=== PATIENT | female | born 1955 | race Caucasian/White ===

== ENCOUNTER 2025-02-17 12:50 | Outpatient (AMB) | payer MEDICARE, MEDICAID, SELFPAY ==
--- NOTE | 2025-02-17 13:04 | A.OFFVIS_ITS ---
Vital Signs 02/17/25 13:08 Height 5 ft 1 in Weight 190 lb 11.198 oz BMI 36.0 BP 144/84 H Blood Pressure Location Rt brachial Position Sitting Pulse 85 Pulse Source Pulse Oximeter Pulse Oximetry (%) 99 Oxygen Delivery Method Room Air Intake Visit Reasons: Obesity Intake Note: New patient referred by PCP for Obesity. Asset Manager Required: No Accompanied by: Self / Same As Patient Allergies alendronate sodium Allergy (Unknown, Verified 02/17/25 13:11) Trouble Breathing levofloxacin Allergy (Unknown, Verified 02/17/25 13:11) trouble breathing meloxicam Allergy (Unknown, Verified 02/17/25 13:11) Dizziness Penicillins Allergy (Unknown, Verified 02/17/25 13:11) Dizziness, hot flashes, trouble breathing Medication List - Last Reconciled 02/17/25 by Fredy Arciniega MD amlodipine 5 mg PO DAILY bupropion HCl XL 150 mg PO QAM furosemide 20 mg PO DAILY hydrocodone-acetaminophen 5-325 mg 1 tab PO BID PRN pantoprazole 20 mg PO DAILY HPI Comments Details: The patient is a 69-year-old female presenting with concerns regarding weight management and the potential for diabetes due to her recent weight gain and family history of diabetes. She reports a history of obesity, exacerbated by a 15-pound weight gain following spinal surgery conducted on May 26 at [facility]. This surgery involved the insertion of metal rods from T9 to her sacrum, leading to significant postoperative back pain and impaired mobility. She attempts daily walking for 20 minutes using a walker but finds this challenging. Her family history includes diabetes on both her father's and mother's sides, contributing to her concerns about developing diabetes herself, though she currently considers herself prediabetic without a formal diagnosis. She previously tried Weight Watchers and a trial of Zepbound, losing 24 pounds in two months. However, financial constraints hinder her continuation of Zepbound, as insurance does not cover it. Her current weight is approximately 190 pounds. No thyroid problems are reported, but she has arthritis and significant post-surgical back pain. The patient's diet includes a preference for sweets over other foods. She has not seen a raw stock dyeing machine tender before and has previously tried Weight Watchers for weight management. Despite efforts, weight issues have worsened with age. She has no food allergies or intolerances reported. There was no history thyroid problems. History of osteoarthritis and back pain s?p surgery .No sx of Nicola's Syndrome PFSH Medical History (Updated 02/17/25 @ 13:15 by Fredy Arciniega MD) Obesity Surgical History History of surgery Hx of spinal fusion Family History Mother History of hypertension Arthritis Lymphoma Father Arthritis Heart attack Diabetes Social History Alcohol intake: current Alcohol intake frequency: holidays/special occasions only Patient Tobacco Use Status: Former Tobacco user Physical Exam Vital Signs: Last Vital Signs Pulse 85 02/17/25 13:08 BP 144/84 H 02/17/25 13:08 Pulse Ox 99 02/17/25 13:08 Oxygen Delivery Method Room Air 02/17/25 13:08 BMI result Body Mass Index 36.0 Const Other: There were no cushingoid features. Thyroid gland is normal size weighs about 15 g . Assessment & Plan Assessment & Plan (1) Obesity: Code(s): E66.9 - Obesity, unspecified Category: Medical Plan: 69-year-old female with a history of morbid obesity and comorbidities of osteoarthritis as well as hypertension. No clear endocrine etiology. We will check TSH to rule out thyroid disease 1. Obesity The patient's obesity is exacerbated by limited mobility post-surgery. Discussed obesity's complexity and GLP-1 hormone role. She had success with Zepbound but stopped due to cost. Options for reduced-cost access via [employer] were explained. Will attempt insurance submission for Zepbound, likely facing rejection. Referred to raw stock dyeing machine tender. 2. Post-surgical back pain Significant pain persists post-surgery. Weight loss via Zepbound may help. Advised continued walking as tolerated. Explained weight loss could alleviate symptoms. 3. Prediabetes Family history and concerns noted. Discussed monitoring glucose levels. Explained GLP-1 therapy's potential metabolic benefits. Recommended dietary changes and raw stock dyeing machine tender consultation. 4. Arthritis Weight loss could improve arthritis. Emphasized weight reduction benefits on joint health and mobility. 5. Family history of diabetes Addressed concern about family history. Reassured about weight management steps and potential diabetes prevention through lifestyle changes and medication. During the consultation, we discussed the complexity of obesity and its management, including the role of GLP-1 hormones. I explained the patient's previous success with Zepbound and the current financial barriers to its continuation. We explored options to access the medication at a reduced cost through [employer]. I plan to submit a prescription for Zepbound through her insurance, although I anticipate rejection. I recommended consultation with a raw stock dyeing machine tender for dietary guidance. We discussed the patient's family history of diabetes and the importance of monitoring her blood glucose levels and making lifestyle modifications to prevent diabetes. The potential benefits of weight loss on her post-surgical back pain and arthritis were also reviewed. - Follow up with the referred raw stock dyeing machine tender to discuss dietary changes. - Attempt daily walking as tolerated for 20 minutes with the use of a walker. - Monitor blood glucose levels regularly. - Consider the option of accessing Zepbound through [employer] if insurance does not cover it. - Return for a follow-up appointment in three to four months. The patient had an opportunity to ask questions regarding treatment plan. The patient expressed understanding and agreement with the above treatment plan. Patient was informed and verbally consented to the use of an ambient scribe for clinic note documentation during this visit. Orders: Orders Free T4 (Free Thyroxine) Today E66.9 - Obesity, unspecified Thyroid Stimulating Hormone Today E66.9 - Obesity, unspecified Referrals Nutrition/Dietitian Referral E66.9 - Obesity, unspecified Medications: New tirzepatide (weight loss) (Zepbound) for 4 weeks 2.5 mg (0.5 mL) subcut QWEEK 2 mL 5RF Coding Level of Care Code New Pt Level 4 (25066) Diagnoses Obesity E66.9
[2025-02-17 13:08] VITALS: BP 144/84; PULSE 85; O2SAT 99; BMI 36.0
--- OUTSIDE RECORDS SUMMARY | 2025-02-17 13:30 | XMS_ITS | Clinical Summary ---
Author Organization [facility] [address] [facility] lding Address [address] [place] [address] Phone Care Team Providers Care Wool Sampler Name Role Phone Rebeca Allen MD Primary Care Prov ider Allergies Active Allergy Reactions Criticality Noted Date Comments Alendronate Sodium Other 05/22/2023 Unknown reaction type. Patient states that she was on Fosamax through [facility] in the past but there is no evidence of that in the chart. Levofloxacin Weakness 09/10/2017 Meloxicam 12/26/2021 Meloxicam-Liniment Penicillins Swelling 12/03/2005 Medications hydrOXYzine HCL (ATARAX) 25 mg tablet Take 1 tablet (25 mg total) by mouth 3 (three) times a day if needed for anxiety. 4 Active lidocaine (XYLOCAINE) 5 % ointment APPLY TO AFFECTED AREA THREE TIMES A DAY 4 Active pantoprazole (PROTONIX) 20 mg EC tablet TAKE 1 TABLET BY MOUTH EVERY DAY 90 tablet 1 4 Active tirzepatide, weight loss, (Zepbound) 2.5 mg/0.5 mL injection Inject 0.5 mL (2.5 mg total) under the skin every 7 (seven) days. 2 mL 5 Active buPROPion SR (WELLBUTRIN SR) 150 mg 12 hr tablet TAKE 1 TABLET BY MOUTH EVERY DAY IN THE MORNING 90 tablet 5 Active furosemide (LASIX) 20 mg tablet Take 1 tablet (20 mg total) by mouth 1 (one) time each day. 90 tablet 1 5 Active amLODIPine (NORVASC) 5 mg tablet Take 1 tablet (5 mg total) by mouth 1 (one) time each day. 90 tablet 1 5 Active HYDROcodone-tyson taminophen (NORCO) 10-325 mg per tablet Take 1 tablet by mouth 3 (three) times a day for 28 days. Max Daily Amount: 3 tablets 84 tablet 5 03/10/20 25 Active HYDROcodone-tyson taminophen (NORCO) 10-325 mg per tablet Take 1 tablet by mouth 3 (three) times a day for 28 days. Max Daily Amount: 3 tablets 84 tablet 5 02/11/20 25 Discontinu ed(Reorder ) Active Problems Problem Noted Date Diagnosed Date Chronic bilateral back pain 09/04/2024 Overview (09/04/2024): Posterior fusion from T9 to pelvic Fusion of spine of thoracic region 06/22/2024 Overview (08/03/2024): Posterior thoracic spine 3 or more levels osteotomy posterior lumbar spine Surgeon Dr. Ulisses Alvarez [facility] 2023 Osteopenia 05/07/2023 Severe obesity (BMI 35.0-39. 9) with comorbidity (CMS/[facility] V24, CMS/[facility] V28) 03/13/2023 COVID-19 virus infection 10/19/2021 Dysthymia 09/06/2020 Chondrocalcinosis of right knee 09/05/2020 Overview (08/03/2024): No history of pseudogout Primary osteoarthritis of both knees 02/06/2017 Overview (08/03/2024): R>L; chondrocalcinosis on the right Fibromyalgia 05/23/2015 Hypertension 06/21/2014 Peripheral vascular disease, unspecified (CMS/HC C V24) 06/21/2014 Osteoarthritis of lumbar spine 04/01/2006 Overview (08/03/2024): L3-4 disc surgery 1983 Encounters Date Type Department Care Team Description 01/15/2025 3:45 PM EDT Office Visit Adult Medicine - [address] [phone] Rebeca Ivory MD Encounter for long-term (current) use of high-risk medication (Primary Dx); Primary hypertension; Peripheral vascular disease, unspecified (CMS/[facility] V24); Chronic bilateral thoracic back pain; Severe obesity (BMI 35.0-39.9) with comorbidity (CMS/HCC V24, [facility] V28) 01/15/2025 10:00 AM EDT Telemedicine Adult Medicine - [place] [address] [place] [phone] Encounter for subsequent annual wellness visit (AWV) in Medicare patient (Primary Dx) 01/15/2025 Telephone Internal Medicine - [facility] [address] [place] [address] Jennifer Roger MA Medicare Annual Wellness Visit Subsequent (AWV DUE 2024) from Last 3 Months Immunizations Name Administration Dates Next Due Influenza Quadravalent, MDCK , 0.5ml, preservative free (Flucelvax) 6mo and older 06/06/2020,06/02/2019,07/08/2018 Influenza Quadravalent, MDCK , 0.5ml, with preservative (Flucelvax) 6mo and older 06/04/2017 Influenza trivalent, 0.5mL ( Fluad) 65yo and older 06/19/2023 Influenza trivalent, 0.5mL, preservative free (Fluarix; FluLaval; Fluzone) ages 6mo and older (Afluria) 3 years and older 07/03/2016,06/27/2015,08/10/2014,2007,08/11/2007 Influenza trivalent, with preservative (Fluzone; Afluria) 6mo and older 07/03/2016,06/27/2015,08/10/2014,2007,08/11/2007 Moderna Covid-19 Bivalent, O riginal + Ba.1 (Non-US Tradename Spikevax Bivalent) 07/10/2023,08/13/2022 Moderna SARS-CoV-2 COVID-19, mRNA, LNP-S, preservative free 08/21/2021,11/20/2020,10/23/2020 Td Tetanus diptheria (Tdvax) 7yo and older 04/01/2006 Tdap Tetanus diptheria acell ular pertussis (Boostrix; Adacel) 7yo and older 06/21/2014,04/01/2006 Medical History Medical History Date Comments Chronic airway obstruction, not elsewhere classified 04/01/2006 DX:Chronic airway obstructio n, not elsewhere classified; COMMENT: 30 PACK YEARS Lumbago 04/01/2006 DX:Lumbago Insomnia, unspecified 12/02/2006 DX:Insomni a, unspecified 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, of the knee, right 09/05/2020 DX:Chondrocalci nosis due to dicalcium phosphate crystals, of the knee, right; COMMENT: No history of pseudogout Osteopenia 05/07/2023 DX:Osteopenia Family History Medical History Relation Name Comments Coronary artery disease Brother 1 MVA Brother 2 Arthritis Father Diabetes Father Heart attack Father Arthritis Mother Hypertension Mother Lymphoma Mother No Known Problems Sister 1 No Known Problems Sister 2 No Known Problems Sister 3 No Known Problems Sister 4 No Known Problems Sister 5 No Known Problems Son Relation Name Status Comments Brother 1 Alive Brother 2 Father Mother Alive Sister 1 Alive Sister 2 Alive Sister 3 Alive Sister 4 Alive Sister 5 Alive Son Alive Social History Tobacco Use Types Packs/Day Years Used Date Smoking Tobacco: Former Cigarettes Q uit: 09/23/2008 Smokeless Tobacco: Never Tobacco Cessation:Counseling Given: Not Answered Alcohol Use Standard Drinks/Week Comments Yes 0 (1 standard drink = 0.6 oz pur e alcohol) rarely Housing Instability Answer Date Recorde d Are you worried that in the next 2 months you may not have stable housing? No 01/15/2025 Food Access & Nutrition Answer Date Rec orded Do you have access to a vari ety of food including fruits and vegetables? Yes 01/15/2025 Access to Healthcare Answer Date Record ed Within the last 3 months, ho w many times did you visit the emergency department for your medical care? 0 01/15/2025 Health Literacy Answer Date Recorded How often do you need to hav e someone help you when you read instructions, pamphlets, or other written material from your doctor or pharmacy? Never 01/15/2025 Caregiver: How often do you need to have someone help you when you read instructions, pamphlets, or other written material from your doctor or pharmacy? Not on file 01/15/2025 Financial Risk Answer Date Recorded How hard is it for you to pa y for the very basics like food, housing, medical care, and air conditioning / heating? Not very hard 01/15/2025 Transportation Answer Date Recorded Has the lack of transportati on kept you from meetings, work, or from getting things needed for daily living? No Has the lack of transportati on kept you from medical appointments or from getting medications? No 01/15/2025 Social Isolation Answer Date Recorded How often do you feel lonely or isolated from th ose around you? Never 01/15/2025 Food Risk Answer Date Recorded Within the past 12 months we worried whether our food would run out before we got money to buy more. Never true 01/15/2025 Within the past 12 months th e food we bought just didn't last and we didn't have money to get more. Never true 01/15/2025 Dependent Care Answer Date Recorded Do you need help finding or paying for care for your loved ones. For example, child protective services specialist or elderly care for an older adult? No 01/15/2025 Education Answer Date Recorded Do you think completing more education or training, like finishing a GED, going to college, or learning a trade, would be helpful for you? No 01/15/2025 Employment and Income Answer Date Recor ded During the last four weeks, have you been actively looking for work? No 01/15/2025 Living Situation Answer Date Recorded What is your living situation? 0 01/15/2025 Comments No Sex and Gender Information Value Date Recorded Sex Assigned at Not on file Legal Sex Female 12:32 PM EST Gender Identity Not on file Sexual Orientation Not on file Obstetrics History Last Filed Vital Signs Vital Sign Reading Time Taken Comments Blood Pressure 135/78 01/15/2025 3:40 PM EDT Pulse 111 01/15/2025 3:40 PM EDT Temperature 36.6 ??C (97.8 ??F) 01/15/2025 3:40 PM ED T Respiratory Rate - - Oxygen Saturation - - Inhaled Oxygen Concentration - - Weight 77.1 kg (170 lb) 09/04/2024 3:34 PM EST Height 149.9 cm (4' 11 ) 01/15/2025 3:40 PM EDT Body Mass Index 34.34 09/04/2024 3:34 PM EST Plan of Treatment Upcoming Encounters Date Type Department Care Team (Late st Contact Info) Description 04/20/2025 2:45 PM EDT Office Visit Adult Medicine [facility] [address] [place] [phone] Asha Montesinos PA [address] [place] [address] Health Maintenance Due Date Last Done Comments Pneumococcal Vaccine: 50+ Years (1 of 1 - PCV) 2006 Zoster Vaccines (1 of 2) 2006 RSV Immunization Adult Patients (1 - Risk 60-74 years 1-dose series) 2016 Colorectal Cancer Screening: Colonoscopy 08/21/2022 COVID-19 Vaccine ( season) 2024 07/10/2023, 08/13/2022, 08/21/2021, Additional history exists Breast Cancer Screening 03/20/2025 03/20/2023 Hypertension/CHF/CAD Annual BMP Blood Test 06/03/2025 06/03/2024 Depression Screening 01/15/2026 01/15/2025, 05/20/20 24 Falls Risk Assessment 01/15/2026 01/15/2025 Medicare Annual Wellness Visit 01/15/2026 01/15/2025 Social Influencers of Health Screening 01/15/2026 01/15/2025 Cholesterol Screening (Lipid Panel) 04/12/2028 04/12/2023, 03/13/2023 DTaP,Tdap,and Td Vaccines (5 - Td or Tdap) 02/01/2032 01/31/2022, 06/21/2014, 04/01/2006, Additional history exists Osteoporosis Screening (Bone Density Screening) 05/02/2033 05/02/2023 Hepatitis C Screening Completed 06/21/2014 Influenza Vaccine Completed 06/02/2024, , 06/20/2022, Additional history exists HIB Vaccines Aged Out No longer eligi ble based on patient's age to complete this topic HPV Vaccines Aged Out No longer eligi ble based on patient's age to complete this topic Hepatitis A Vaccines Aged Out No long er eligible based on patient's age to complete this topic Hepatitis B Vaccines Aged Out No long er eligible based on patient's age to complete this topic IPV Vaccines Aged Out No longer eligi ble based on patient's age to complete this topic MMR Vaccines Aged Out No longer eligi ble based on patient's age to complete this topic Meningococcal ACWY Vaccine Aged Out N o longer eligible based on patient's age to complete this topic Meningococcal B Vaccine Aged Out No l onger eligible based on patient's age to complete this topic RSV Immunization Patients Under 20 months Aged Out No longer eligible based on patient's age to complete this topic Varicella Vaccines Aged Out No longer eligible based on patient's age to complete this topic Procedures Procedure Name Priority Date/Time Associated Diagnosis Comments OPIATES CONFIRMATION, URINE Routine 01/15/2025 4:23 PM EDT Encounter for long-term (current) use of high-risk medication DRUG ABUSE SCREEN EXPANDED WITH REFLEX CONFIRMATION, URINE Routine 01/15/2025 4:23 PM EDT Encounter for long-term (current) use of high-risk medication ANNUAL BMP BLOOD TEST Routine 06/03/2024 DEPRESSION SCREENING Routine 05/20/2024 DXA BONE DENSITY STUDY 1+ SITS AXIAL SKEL Routine 05/02/2023 3:28 PM EDT Encounter for screening for osteoporosis LIPID PANEL Routine 04/12/2023 ODALIS SCREENING DIGITAL Routine 03/20/2023 11:09 AM EDT Encounter for screening mammogram for malignant neoplasm of breast HEPATITIS C SCREENING Routine 06/21/2014 from Last 3 Months or Most Recently Relevant to Health Maintenance Results * (ABNORMAL) Drug abuse screen expanded with reflex confirmation, urine (01/15/2025 4:23 PM EDT) Amphetamine Screen, Ur Negative Negative LAB CHEMISTRY METHOD 5 6:37 PM EDT [facility] Comment:Certain OTC medicati ons containing ephedrine, phenylephrine, pseudoephedrine and phenylpropanolamine can cause false positive results. Barbiturate Screen, Ur Negative Negative LAB CHEMISTRY METHOD 5 6:37 PM EDT [facility] Benzodiazepine Screen, Ur Negative Negative LAB CHEMISTRY METHOD 5 6:37 PM EDT [facility] Cocaine Screen, Ur Negative Negative [facility] Opiate Screen, Ur Positive(A ) Negative [facility] Cannabinoid (THC) Screen, Ur Negative Negative LAB CHEMISTRY METHOD 5 6:37 PM EDT [facility] Comment:Specimens from patie nts taking pantoprazole sodium (Protonix) have been shown to produce false positive results. Fentanyl, Ur Negative Negative [facility] Oxycodone Screen, Ur Negative Negative LAB CHEMISTRY METHOD 5 6:37 PM [facility] Urine Urine specimen obtained by clean catch procedure / Unknown Non-blood Collection / Unknown 01/15/2025 4:23 PM EDT 01/15/2025 4:23 PM EDT Narrative [facility] - 01/15/2025 6:37 PM EDT Assay cutoffs: Amphetamines ? 1000 ng/mL Barbiturates ?200 ng/mL Benzodiazepines ?? 200 ng/mL Cocaine ? 300 ng/mL Fentanyl ?1 ng/mL Opiates ? 300 ng/mL Oxycodone ? 100 ng/mL THC ?50 ng/mL Semi-quantitative assay for screening purposes only. Unconfirmed screening result should not be used for non-medical purposes. *POSITIVE RESULTS ARE AUTOMATICALLY SENT FOR ALTERNATE METHOD CONFIRMATION* us Rebeca Allen MD LAB URINE ORDERABL ES Final Result [facility] ([facility] [address] [place] [address], * Opiates confirmation, urine (01/15/2025 4:23 PM EDT) Morphine Confirm, Urine Negative ng/mL 01/19/2025 1:10 AM EDT [facility] Codeine Confirm, Urine Negative ng/mL 01/19/2025 1:10 AM EDT [facility] Hydrocodone Confirm, Urine 891 ng/mL 01/19/2025 1:10 AM EDT [facility] Hydromorphone Confirm, Urine 135 ng/mL 01/19/2025 1:10 AM EDT [facility] Oxycodone Confirm, Urine Negative ng/mL 01/19/2025 1:10 AM EDT [facility] Oxymorphone Confirm, Urine Negative ng/mL 01/19/2025 1:10 AM EDT [facility] Creatinine 56 20 - 250 mg/dL 01/19/2025 1:10 AM EDT [facility] Adulterants Negative 01/19/2025 1:10 AM EDT [facility] Comment: ? Confirmation (LC/MS/MS) Decision Limits ?Morphine ?25 ng/mL ?Codeine ? 25 ng/mL ?Hydrocodone ? 25 ng/mL ?Hydromorphone ? 25 ng/mL ?Oxycodone ? 25 ng/mL ?Oxymorphone ? 25 ng/mL ?Adulterant Decision Limit: ? General Oxidants ? 200 ug/mL ?The adulterant assay tests for General Oxidants, ??including Chromates and Nitrites. ??Adulterants are ??substances either ingested or added directly to a ??urine specimen to prevent the detection of drug use. If applicable, any drug confirmation testing reported here was developed and the performance characteristics determined by [facility]. This confirmation testing has not been cleared or approved by the FDA. The laboratory is regulated under CLIA as qualified to perform high-complexity testing. This test is used for patient testing purposes. It should not be regarded as investigational or for research. Test performed at [facility], [address], [place], [place] ??[address] ? [phone] Gale Veliz MD, PhD - [employer] Urine Urine specimen obtained by clean catch procedure / Unknown Non-blood Collection / Unknown 01/15/2025 4:23 PM EDT 01/15/2025 6:37 PM EDT us Rebeca Allen MD LAB URINE ORDERABL ES Final Result [facility] [address] [place] [address] * Annual [facility] Blood Test (06/03/2024) [facility] Annual BMP Blood Test Abstracted us Historical Provider HEALTH MAINTENANCE Final Result * Depression Screening (05/20/2024) [facility] Depression Screening Abstracted us Historical Provider HEALTH MAINTENANCE Final Result * DXA BONE DENSITY STUDY 1+ SITS AXIAL SKEL (05/02/2023 3:28 PM EDT) Anatomical Region Laterality Modality Bone Densitometr y 03/13/2023 10:2 5 AM EDT Narrative 05/06/2023 11:47 AM EDT STUDY: ??DUAL ENERGY X-RAY ABSORPTIOMETRY / DXA REASON FOR EXAM: ?? Female, 67 years old. ??other(see comments) TECHNIQUE: ?? Bone Mineral Density (BMD) measurements of the lumbar spine and left hip were obtained. ?? COMPARISON: None ?? FINDINGS: L1-L4 T score: 0.6. ??This corresponds to Normal bone density. Left femoral neck T score: -2.0. ??This corresponds to osteopenia. Left total hip T score: -1.6. ??This corresponds to osteopenia. FRAX score: 10 year risk of major osteoporotic fracture 9.7%, 10 year risk of hip fracture 1.4% IMPRESSION: IMPRESSION: Osteopenia Reference Information: The T-score is the number of standard deviations above or below the standard which is normal for young adults at their peak bone mineral density. The World Health Organization (WHO) interprets the T-scores as follows: Above ??-1 ?Normal bone density Between -1 and -2.5 ?Osteopenia Equal to / or below -2.5 ??Osteoporosis As a practical clinical guideline, osteopenia may be graded as follows: Mild -1 through -1.5 Moderate -1.6 ??through -2.0 Severe ??-2.1 ??through -2.4 References: 1. ??NIH Osteoporosis and Related Bone Diseases http://www.osteo.org 2. ??International Society for Clinical Densitometry http://www.iscd.org 3. ??National Osteoporosis Foundation http://www.nof.org Procedure Note Antonia Marques MD - 10/29/2023 STUDY: DUAL ENERGY X-RAY ABSORPTIOMETRY / DXA REASON FOR EXAM: Female, 67 years old. other(see comments) TECHNIQUE: Bone Mineral Density (BMD) measurements of the lumbar spineand left hip were obtained. COMPARISON: None FINDINGS: L1-L4 T score: 0.6. This corresponds to Normal bone density. Left femoral neck T score: -2.0. This corresponds to osteopenia. Left total hip T score: -1.6. This corresponds to osteopenia. FRAX score: 10 year risk of major osteoporotic fracture 9.7%, 10 year riskof hip fracture 1.4% IMPRESSION: IMPRESSION: Osteopenia Reference Information: The T-score is the number of standard deviations above or below thestandard which is normal for young adults at their peak bone mineral density. The World HealthOrganization (WHO) interprets the T-scores as follows: Above -1 Normal bone density Between -1 and -2.5 Osteopenia Equal to / or below -2.5 Osteoporosis As a practical clinical guideline, osteopenia may be graded as follows: Mild -1 through -1.5 Moderate -1.6 through -2.0 Severe -2.1 through -2.4 References: 1. NIH Osteoporosis and Related Bone Diseases http://www.osteo.org 2. International Society for Clinical Densitometry http://www.iscd.org 3. National Osteoporosis Foundation http://www.nof.org Anibal [facility]Kevin DXA PROCEDURES Final Resul t * Lipid panel (04/12/2023) Cholesterol 160 <=200 mg/dL Blood Venous blood specimen / Unknown us Historical Provider LAB BLOOD ORDERABLES Thu melendez Result * [facility] SCREENING DIGITAL (03/20/2023 11:09 AM EDT) Anatomical Region Laterality Modality Mammography 03/19/2023 2:51 PM EDT Narrative 03/20/2023 11:09 AM EDT [facility] Diagnostic Imaging Department [address] [place] [address] Patient: ??SAM AG ?/Age/Sex: 1955 - 67 - F Unit#: ??[id number] ? Location/Status: ??SPDIMAM/REG CLI ? Mnemonic/Ordering Site: ??DIGSC/SPMAM Ordering Physician: ??REBECA ALLEN MD Odalis Screening Digital - 03/19/23 - [id number] Report Status:Signed EXAM: [facility] Screening Digital EXAM DATE AND TIME: 03/19/2023 3:20 PM HISTORY: ??Screening. COMPARISON: ??07/14/12, 07/07/12, 12/04/10 TECHNIQUE: CC and MLO views of both breasts were obtained using full field digital mammography. Bilateral digital breast tomosynthesis was performed in the MLO projection. Computer aided detection with [employer] 7.2-H and iCAD [employer] 3D 3.1 was employed. TISSUE DENSITY: b. There are scattered areas of fibroglandular density. FINDINGS: No suspicious masses, grouped microcalcifications, or areas of architectural distortion are seen. Benign rim calcifications are again seen bilaterally. The skin and vascularity are unremarkable. IMPRESSION: No mammographic evidence of malignancy is seen. No significant change. A negative mammogram in the presence of a clinically suspicious palpable abnormality does not preclude the possibility of malignancy or alter the indications for biopsy. BI-RADS: ??Category 2: Benign RECOMMENDATION(S): 1: Routine screening mammogram BILATERAL in 1 year. [id number], [id number], 7025F Dictating Physician: ??MANDY ALLEN MD Electronically Signed by: ??MANDY ALLEN MD Dic Date/Time: ??03/20/23 110 Sign date/Time: ??03/20/23 110 Procedure Note Mandy Allen MD - 10/29/2023 [facility] Diagnostic Imaging Department [address] [place] [address] Patient: SAM AG D.O.B./Age/Sex: 1955 - 67 - F Unit#: [id number] Location/Status: SPDIMAM/REG CLI Mnemonic/Ordering Site: [facility] Ordering Physician: REBECA ALLEN MD Odalis Screening Digital - 03/19/23 - [id number] Report Status:Signed EXAM: [facility] Screening Digital EXAM DATE AND TIME: 03/19/2023 3:20 PM HISTORY: Screening. COMPARISON: 07/14/12, 07/07/12, 12/04/10 TECHNIQUE: CC and MLO views of both breasts were obtained using fullfield digital mammography. Bilateral digital breast tomosynthesis was performedin the MLO projection. Computer aided detection with iCAD [employer] 7.2-H [employer] 3D 3.1 was employed. TISSUE DENSITY: b. There are scattered areas of fibroglandular density. FINDINGS: No suspicious masses, grouped microcalcifications, or areas ofarchitectural distortion are seen. Benign rim calcifications are again seen bilaterally.The skin and vascularity are unremarkable. IMPRESSION: No mammographic evidence of malignancy is seen. No significant change. A negative mammogram in the presence of a clinically suspicious palpable abnormality does not preclude the possibility of malignancy or alter the indications for biopsy. BI-RADS: Category 2: Benign RECOMMENDATION(S): 1: Routine screening mammogram BILATERAL in 1 year. [id number], [id number] 3342F, 7025F Dictating Physician: MANDY ALLEN MD Electronically Signed by: MANDY ALLEN MD Dic Date/Time: 03/20/23 1108 Sign date/Time: 03/20/23 1109 Rebeca Allen MD IMG BI PROCEDURES Final Result * Hepatitis C Screening (06/21/2014) Hepatitis C Screening Abstracted Historical Provider HEALTH MAINTENANCE Final Result from Last 3 Months or Most Recently Relevant to Health Maintenance Insurance MEDICARE [place]ICAID - [place] Care Teams Wool Sampler Relationship Specialty Start Date End Date Rebeca Allen MD [address] [place] [phone] PCP - General Internal Medicine 09/04/24
== END 2025-02-17 13:52 | disposition home or self-care (01) ==
LOC: HO.ENCR 12:50
PROVIDERS: PCP Internal Medicine; Visit Provider Internal Medicine Endocrinology, Diabetes & Metabolism
DX: E66.9 Obesity, unspecified (principal)
CPT/HCPCS: 99204

== ENCOUNTER → 2025-02-17 12:50 | Outpatient (BNVA) | payer MEDICARE, MEDICAID, SELFPAY | PROVIDERS: PCP Internal Medicine; Visit Provider Internal Medicine Endocrinology, Diabetes & Metabolism | DX: E66.9 Obesity, unspecified (principal); Z68.36 Body mass index [BMI] 36.0-36.9, adult | CPT/HCPCS: 99202 ==

== ENCOUNTER 2025-09-14 12:30 | Outpatient (AMB) | payer MEDICARE, OTHER, SELFPAY ==
[2025-09-14 12:37] VITALS: BP 142/84; PULSE 71; O2SAT 98; BMI 38.4
--- NOTE | 2025-09-14 12:37 | A.OFFVIS_ITS ---
Vital Signs 09/14/25 12:37 Height 5 ft 1 in Weight 203 lb BMI 38.4 BP 142/84 H Blood Pressure Location Lt brachial Position Sitting Pulse 71 Pulse Source Pulse Oximeter Pulse Oximetry (%) 98 Oxygen Delivery Method Room Air Intake Visit Reasons: OA Intake Note: Patient is a new patient, externally referred by ROHINI Price for osteoarthritis. Orthopedic Physician Required: No Accompanied by: Self / Same As Patient Allergies alendronate sodium Allergy (Unknown, Verified 09/14/25 12:42) Trouble Breathing levofloxacin Allergy (Unknown, Verified 09/14/25 12:42) trouble breathing meloxicam Allergy (Unknown, Verified 09/14/25 12:42) Dizziness Penicillins Allergy (Unknown, Verified 09/14/25 12:42) Dizziness, hot flashes, trouble breathing HPI Comments Details: 70 year old female with a history of lymphedema in legs, back surgery in 2023 lumbar fusion, she is able to ambulate without a cane only uses when she goes outside. She has gained weight after surgery and is awaiting to use zepbound. She has joint pain in hands, shoulders, knees and hips. She has xrays done at [facility] for the knees which showed arthritis She also has xray done of the hips in May at [facility] She has one hour of morning stiffness,She takes tyenol and vicodin as needed. ROS: very photosensitive , no oral ulcers, no hair fall, no skin rashes, no bloody urine no bloody diarreha, she has dry eyes no dry miuth no miscarriages no blood clots She has Raynauds disease, no finger uclerations FH: sister and neice have lupus PHYSICAL EXAM General: Comfortable walks with a cane CVS: RRR Respiratory: clear to auscultation bilaterally. Good respiratory effort Skin: No lesions seen MSK: Patient is able to make a fist bilaterally. She has nontender MCPs PIPs, no active synovitis noted in the joints. She has limited range of motion of the shoulders there is pain with overhead abduction. She has limited range of motion of the hips, she has lymphedema in both lower extremities. Limited range of motion of the knees. [facility] Medical History (Updated 09/14/25 @ 13:38 by Екатерина Arellano MD) Abnormal EKG Palpitations Fusion of lumbar spine GERD (gastroesophageal reflux disease) Major depressive disorder Back pain Peripheral vascular disease Fibromyalgia Colon cancer screening Osteoarthritis Primary hypertension Obesity Surgical History History of surgery Hx of spinal fusion Family History (Updated 09/14/25 @ 12:44 by Cristiane Menjivar CMA) Mother History of hypertension Arthritis Lymphoma Father Arthritis Heart attack Diabetes Sister Lupus (systemic lupus erythematosus) Social History Alcohol intake: current Alcohol intake frequency: holidays/special occasions only Patient Tobacco Use Status: Former Tobacco user Physical Exam Vital Signs: Last Vital Signs Pulse 71 09/14/25 12:37 BP 142/84 H 09/14/25 12:37 Pulse Ox 98 09/14/25 12:37 Oxygen Delivery Method Room Air 09/14/25 12:37 BMI result Body Mass Index 38.4 Assessment & Plan Assessment & Plan (1) Osteoarthritis: Code(s): M19.90 - Unspecified osteoarthritis, unspecified site Category: Medical Qualifiers: Osteoarthritis location: multiple joints Osteoarthritis type: primary Qualified Code(s): M15.0 - Primary generalized (osteo)arthritis (2) Polyarthralgia: Code(s): M25.50 - Pain in unspecified joint Category: Medical (3) Raynauds disease: Code(s): I73.00 - Raynaud's syndrome without gangrene Category: Medical Qualifiers: Raynaud?s-associated gangrene presence: without gangrene Qualified Code(s): I73.00 - Raynaud's syndrome without gangrene Plan 70-year-old female with a history of osteoarthritis, chronic lower back pain status post surgery, fibromyalgia presenting to me for evaluation of joint pain. She is also concerned about the thought of lupus as her sister and niece have SLE. She endorses photosensitivity and Raynaud's phenomena along with some dry eyes. Based on her history and physical exam most likely cause of joint pain and osteoarthritis/wear and tear arthritis. Less likely for her to have SLE, RA or other connective tissue disease as she does not have the clinical features. She also may have a component of fibromyalgia. I do not see any signs of inflammatory arthritis on my exam however I will complete workup including SYED, SYED subsets, RF, CCP, ESR, CRP, I will also obtain x-rays of the hands and shoulders. I will also obtain records of her x-rays of her knees and hips. I will follow up with her in 4 weeks to discuss the results of her imaging and blood work, in the interim I suggested the patient that she should try to get a sleep apnea study to rule out sleep apnea which will improve her sleep and hopefully improve her joint pain. She is also looking to get Zepbound improved by insurance so that she can lose weight which will help her osteoarthritis. Orders: Orders C Reactive Protein Today R76.0 - Raised antibody titer UA ClnCatch+Micro w/rflx Cult Today R76.0 - Raised antibody titer Protein Creatinine Ratio, Ur Today R76.0 - Raised antibody titer SYED Reflex Titer and Pattern Today R76.0 - Raised antibody titer Cyclic Citrullinated Peptide Today R76.0 - Raised antibody titer Rheumatoid Factor Today R76.0 - Raised antibody titer Scleroderma 12 Panel Today R76.0 - Raised antibody titer Thyroid Stimulating Hormone Today R76.0 - Raised antibody titer Thyroglobulin Antibodies Today R76.0 - Raised antibody titer XR Hand Fransisco 2V Today I73.00 - Raynaud's syndrome without gangrene, M19.90 - Unspecified osteoarthritis, unspecified site, M25.50 - Pain in unspecified joint XR Shoulder Fransisco min 2V Today M19.90 - Unspecified osteoarthritis, unspecified site, M25.50 - Pain in unspecified joint Complete Blood Count Auto Diff Today R76.0 - Raised antibody titer Alanine Aminotransferase Today R76.0 - Raised antibody titer Aspartate Amino Transferase Today R76.0 - Raised antibody titer Creatinine Today R76.0 - Raised antibody titer Erythrocyte Sedimentation Rate Today R76.0 - Raised antibody titer Complement C3 Today R76.0 - Raised antibody titer Complement C4 Today R76.0 - Raised antibody titer DNA Double Stranded-Crithidia Today R76.0 - Raised antibody titer Anti DNA DS Antibody Today R76.0 - Raised antibody titer Sm Sm/ELECTRIC 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
--- OUTSIDE RECORDS SUMMARY | 2025-09-14 13:33 | XMS_ITS | Encounter Summary ---
Author Organization [facility] Address [address] [place] [address] Care Team Providers Care Signing Agent Name Role Phone Rebeca Allen MD Primary Care Prov ider Reason for Referral * Consultation (Routine) - Authorized Specialty Diagnoses / Procedures Referred By Contac t Referred To Contact Cardiology Diagnoses Abnormal electrocardiogram (ECG) (EKG) Rebeca Allen MD [address], [place] Phone: tel: fax: [facility] [address] [place] [address] Phone: tel: fax: Referral ID Status Reason Start Date Expiration Date Visits Requested Visits Authorized [id number] Authorized Specialty Services Required 08/23/2025 08/23/2026 5 5 Reason for Visit * Reason Onset Date Comments Referral 08/23/2025 Cardiology Insur ance Referral Encounter Details Date Type Department Care Team (Late st Contact Info) Description 08/23/2025 Telephone Adult Medicine - [place] [address] [place] [phone] Rebeca Allen MD [address], [place] Social History Tobacco Use Types Packs/Day Years Used Date Smoking Tobacco: Former Cigarettes 0.5 Q uit: 09/23/2008 Smokeless Tobacco: Never Alcohol Use Standard Drinks/Week Comments Yes 0 [...] for your loved ones. For example, child care coordinator or elderly care for an older adult? [...] Date Recorded What is your living situation? Unrecognized valu e 01/15/2025 Comments No Sex and Gender Information Value Date Recorded Sex Assigned at Female 04/27/2025 10:36 AM EDT Legal Sex Female 12:32 PM EST Gender Identity Female 04/27/2025 10:36 AM EDT Sexual Orientation Straight 04/27/2025 10 :36 AM EDT documented as of this encounter Progress Notes * Gisell Sands - 08/23/2025 8:48 AM EST -tyg[]'What insurance does the patient have today? Payor: @[email or web address]/@[email or web address] Referrals cannot be processed if the insurance is not accurate. If the insurance listed above is NO BILLING INFORMATION FOUND FOR THIS ENCOUNTER then the patients correct insurance must be obtainedand registered in [facility] or their referral can not be processed. Name of person calling to request this referral? Fax -Ellen Referred To Provider (Include first and last name): KILLIAN NPI (if known): [phone] Order/Specialty requested cardiology Chief Complaint (Note: This is not a body part or a procedure): R94.31 Has the patient seen provider for this problem/Dx before? Referred To Provider Address: [address] Referred To Provider Referred To Provider Does patient have an appointment scheduled?: yes If yes, what is the date of the appointment?: 08/25/25 Is this a retro request? no Number of visits requested: 6 Is this appointment related to: MVA or worker compensation? no documented in this encounter Plan of Treatment Upcoming Encounters Date Type Department Care Team (Late st Contact Info) Description 09/21/2025 3:00 PM EST Ancillary Procedure [facility] [address] [place] [address] 10/08/2025 2:30 PM EST Ancillary Procedure [facility] [address] [place] [address] 10/22/2025 11:45 AM EST Office Visit Adult Medicine - [place] [address] [place] [address] Asha Montesinos PA [address] [place] [address] Scheduled Referrals Name Type Priority Associated Diagnoses Orde r Schedule Ambulatory referral to Cardiology Outpatient Referral Routine Abnormal electrocardiogram (ECG) (EKG) Expected: 08/23/2025, Expires: 08/23/2026 documented as of this encounter Visit Diagnoses Diagnosis Abnormal electrocardiogram (ECG) (EKG)- Primary documented in this encounter Additional Health Concerns Assessment Noted Time PHQ-9 Depression Total Score: 0 04/19/20 5:38 PM EDT A fall risk assessment has been complete d for the patient 01/15/2025 10:13 AM EDT documented as of this encounter Care Teams Signing Agent Relationship Specialty Start Date End Date Rebeca Allen MD [address] [place] [address] PCP - General Internal Medicine 09/04/24 documented as of this encounter
--- OUTSIDE RECORDS SUMMARY | 2025-09-14 13:33 | XMS_ITS | Encounter Summary ---
Author Organization [facility] Address [facility] [employer] [address] [address] Phone Care Team Providers Care Nursing Center Tutor Name Role Phone Rebeca Allen MD Primary Care Pr ovider Encounter Details Date Type Department Care Team (Late st Contact Info) Description 05/26/2024 Procedure Pass [facility] [address] [place] [phone] Social History Tobacco Use Types Packs/Day Years Used Date Smoking Tobacco: Former Cigarettes 2 20 0 06/11/1980 - 10/25/1999 Smokeless Tobacco: Never Alcohol Use Standard Drinks/Week Comments Yes 1 (1 standard drink = 0.6 oz pur e alcohol) Education Answer Date Recorded Are you interested in more education? Not on tiara e 11/06/2023 Are you concerned about learning? Not on file 11/06/2023 No 11/06/2023 No 11/06/2023 Food Answer Date Recorded Within the past 6 months we worried whether our food would run out before we got money to buy more. Never True 05/26/2024 Within the past 6 months the food we bought just didn't last and we didn't have enough money to get more. Never True Residential Stability Answer Date Recor ded What is your housing situation today? I have any sing 05/26/2024 How many times have you move d in the past 12 months? Zero (I did not move) 05/26/2024 Paying for Meds Answer Date Recorded Do you have trouble paying for medicines? No 05/26/2024 Paying Utility Bills Answer Date Record ed Do you have trouble paying your heating or elect ricity bill? No 05/26/2024 Transportation Answer Date Recorded Has the lack of transportati on kept you from medical appointments or from getting medications? No 05/26/2024 Digital Access Answer Date Recorded No 05/26/2024 Yes 05/26/2024 Do you have reliable internet access at home? Ye s 05/26/2024 Do you have a device (e.g., phone, tablet, computer) with a working camera? Yes 05/26/2024 Intimate Partner Violence Answer Date R ecorded Are you denied basic needs s uch as food, clothing, or medical care? No 05/26/2024 In the past 12 months have y ou been in a relationship with a person who hurts, threatens, or tries to control you? No 05/26/2024 Are you denied basic needs s uch as food, clothing, or medical care? No 05/26/2024 In the past 12 months have y ou been in a relationship with a person who hurts, threatens, or tries to control you? No 05/26/2024 Comments No Sex and Gender Information Value Date Recorded Sex Assigned at Female 11/05/2023 3:07 PM EST Legal Sex Female 3:05 PM EST Gender Identity Female 11/05/2023 3:07 PM EST Sexual Orientation Straight 11/05/2023 3: 07 PM EST documented as of this encounter Plan of Treatment Upcoming Encounters Date Type Department Care Team (Late st Contact Info) Description 06/01/2026 1:45 PM EDT Office Visit [facility] [address] [place] [address], 3rd Floor, [address] [place] [address] Maria E Adamson CNP [address] [place] [address] [email or web address] documented as of this encounter Visit Diagnoses Not on filedocumented in this encounter Care Teams Nursing Center Tutor Relationship Specialty Start Date End Date Rebeca Allen MD [address] [place] [id number] PCP - General Internal Medicine 11/05/23 documented as of this encounter Additional Source Comments The information contained in this document represents components of the legal health record. It is not the complete legal health record.[facility]
--- OUTSIDE RECORDS SUMMARY | 2025-09-14 13:33 | XMS_ITS | Encounter Summary ---
Author Organization [facility] Address [address] [place] [address] Phone Care Team Providers Care Airplane Rental Clerk Name Role Phone Rebeca Allen MD Primary Care Pr ovider Encounter Details Date Type Department Care Team (Late st Contact Info) Description 06/02/2024 Procedure Pass [facility] [facility], 2nd Floor, [address] [place] [address] Social History Tobacco Use Types Packs/Day Years [...] Description 06/01/2026 1:45 PM EDT Office Visit [facility] [address] [place] [address], 3[address] Floor, [address] [place] [address] Maria E Adamson CNP [address] [place] [address] [email or web address] documented as of this encounter Visit Diagnoses Not on filedocumented in this encounter Care Teams Airplane Rental Clerk Relationship Specialty Start Date End Date Rebeca Allen MD [address] [place] [address] PCP - General Internal Medicine 11/05/23 documented as of this encounter Additional Source Comments The information contained in this document represents components of the legal health record. It is not the complete legal health record.[facility]
--- OUTSIDE RECORDS SUMMARY | 2025-09-14 13:33 | XMS_ITS ---
Author Name [facility] Organization Unknown Care Team Organization Name Specialty Phone Email Start Date End Da te [facility] ACO 05/12/2025 [facility] JOSE EDUARDO GEORGE Primary Care 09/04/20232023 [facility] DANIELLE SWENSON Primary Care 07/31/2022 05/11/2024
--- OUTSIDE RECORDS SUMMARY | 2025-09-14 13:33 | XMS_ITS | Encounter Summary ---
Author Organization [facility] Address [address] [place] [address] Care Team Providers Care Napper Fixer Name Role Phone Rebeca Allen MD Primary Care Prov ider Encounter Details Date Type Department Care Team ([facility] st Contact Info) Description 07/22/2025 Results Follow-Up Adult [facility] [address] [place] [address] Asha Montesinos PA [address] [place] [address] Social History Tobacco Use Types Packs/Day Years [...] care for your loved ones. For example, children's attendant or elderly care for an older adult? [...] AM EDT documented as of this encounter Plan of Treatment Upcoming Encounters Date Type Department Care Team (Late st Contact Info) Description 09/21/2025 3:00 PM EST Ancillary Procedure [facility] [address] [facility] [address] [place] [address] 10/08/2025 2:30 PM EST Ancillary Procedure [facility] [address] [place] [address] 10/22/2025 11:45 AM EST Office Visit Adult Medicine - [place] [address] [place] [address] Asha Montesinos PA [address] [place] [address] documented as of this encounter Visit Diagnoses Not on filedocumented in this encounter Additional Health Concerns Assessment Noted Time PHQ-9 Depression Total Score: 0 04/19/20 5:38 PM EDT A fall risk assessment has been complete d for the patient 01/15/2025 10:13 AM EDT documented as of this encounter Care Teams Napper Fixer Relationship Specialty Start Date End Date Rebeca Allen MD [address] [place] [address] PCP - General Internal Medicine 09/04/24 documented as of this encounter
--- OUTSIDE RECORDS SUMMARY | 2025-09-14 13:33 | XMS_ITS | Clinical Summary ---
Author Organization [facility] Address [facility] [employer] [address] [address] Phone Care Team Providers Care Circulation Analyst Name Role Phone Rebeca Allen MD Primary Care Pr ovider Allergies Active Allergy Reactions Criticality Noted Date Comments Alendronate Sodium Other (See Comments),Swelling 05/22/2023 Unknown reaction type. Patient states that she was on Fosamax through [facility] [facility] in the past but there is no evidence of that in the chart. Levofloxacin Rash with Joint Pain s (Serum Sickness) 09/10/2017 Other Reaction(s): Muscle weakness Meloxicam Swelling 04/30/2024 Penicillins Swelling 12/03/2005 Medications amLODIPine (NORVASC) 5 MG tablet Take 5 mg by mouth daily. Active buPROPion (WELLBUTRIN SR) 150 MG SR 12 hr tablet Take 150 mg by mouth every morning. Active calcium carbonate-vitam in D3 1500 mg (600 mg elemental)-400 units per tablet Take 1 tablet by mouth 2 (two) times a day. 04/20/2024 Active furosemide (LASIX) 20 MG tablet Take 20 mg by mouth daily. Active pantoprazole (PROTONIX) 20 MG tablet Take 1 tablet by mouth daily. 03/24/2024 Active acetaminophen (TYLENOL) 325 mg tablet Take 3 tablets (975 mg total) by mouth 3 (three) times a day. 06/01/2024 Active tiZANidine (ZANAFLEX) 4 MG tablet TAKE 1 TABLET (4 MG TOTAL) BY MOUTH EVERY 8 HOURS NEEDED FOR MUSCLE SPASM 42 tablet 2 06/08/2025 Active Active Problems Patient Care Coordination No te Formatting of this note is d ifferent from the original. 01/01/2024 2:09 PM RAPT REVIEW FLOWSHEET What is your age group 66-75 years Gender Female How far on average can you walk Housebound (most of time) Which gait aid do you use Single-point stick Do yo use community support None or one per week PROMs Risk Assessment and Prediction Tool (RAPT) Score 7 (Additional Intervention to Discharge Directly Home (e.g. 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 Encounters Date Type Department Care Team Description 07/15/2025 Orders Only [facility] [address] [facility], [address], [address] [place] [address] Dike, [place], [place] Knee instability (Primary Dx) from Last 3 Months Immunizations Immunization Administration Dates Next Due Influenza High-Dose Trivalent Preservative Free IM 06/02/2024 Social History Tobacco Use Types Packs/Day Years [...] Orientation Straight 11/05/2023 3: 07 PM EST Last Filed Vital Signs Vital Sign Reading Time Taken Comments Blood Pressure 160/67 06/03/2024 7:26 AM EDT Pulse 95 06/03/2024 5:03 AM EDT Temperature 37.2 C (99 F) 06/03/2024 7:26 AM EDT Respiratory Rate 18 06/03/2024 7:26 AM EDT Oxygen Saturation 93% 06/03/2024 7:26 AM EDT Inhaled Oxygen Concentration - - Weight 80.7 kg (178 lb) 05/26/2024 6:25 AM EDT Height 149.9 cm (4' 11 ) 05/26/2024 6:25 AM EDT Body Mass Index 35.95 05/26/2024 6:25 AM EDT Plan of Treatment Upcoming Encounters Date Type Department Care Team (Late st Contact Info) Description 06/01/2026 1:45 PM EDT Office Visit [facility] [address], [address], [address] [place] [address] Maria E Adamson, [employer] [address] [place] [address] [email or web address] Maintenance Due Date Last Done Comments DEPRESSION SCREENING 1968 HEPATITIS C SCREENING 1974 COLOGUARD 2001 COLONOSCOPY 2001 COLORECTAL CANCER SCREENING 2001 FIT TEST 2001 FOBT 2001 SIGMOIDOSCOPY 2001 VIRTUAL COLONOSCOPY 2001 PNEUMOCOCCAL VACCINES (50+ years) (1 of 1 - PCV) 2006 ZOSTER VACCINES (1 of 2) 2006 OSTEOPOROSIS SCREENING INITI AL (ONE-TIME) 2021 Adult Td,Tdap Booster 06/21/2024 06/21/2014 INFLUENZA VACCINE (#1) 2025 06/02/2024 COVID-19 VACCINE (1 - 2024-2 6 season) 2025 MAMMOGRAM 05/03/2027 05/03/2025, 05/03/2025 SCREENING FOR DIABETES 06/03/2027 06/03/2024 LIPID PANEL 04/12/2028 04/12/2023 RSV VACCINE (1 - 1-dose 75+ series) 2031 SMOKING STATUS SCREENING (On ce After 26 Yrs) Completed 06/03/2025 HEPATITIS A VACCINES Aged Out No long er eligible based on patient's age to complete this topic HIB VACCINES Aged Out No longer eligi ble based on patient's age to complete this topic MENINGOCOCCAL VACCINES (ACWY) Aged Out No longer eligible based on patient's age to complete this topic MENINGOCOCCAL VACCINES (B) Aged Out N o longer eligible based on patient's age to complete this topic Medical Devices Implanted Type Area Inspector Fabric Device Identifier Shelf Expiration Date Model / Serial / Lot Kit Graft 2.5x5.0cm Lg Bone Infuse Allograft Protein Collagen Absorbable Water Syringe Sponge - [id number] Implanted:Qty: 1 on 05/26/2024 by Darien Alvarez MD at [facility] BON[employer]UE N/A: Spine Lumbar [employer] 06/23/2025 [id number] / / [id number] Set Screw 5.5x55mm Spine Cd Horizon Multiaxial [place] Osteogrip Dual Lead Thread - [id number] Implanted:Qty: 22 on 05/26/2024 by Darien Alvarez MD at [facility] N/A: Spine Lumbar [employer] [id number] / / Side Loading Connector Implanted:Qty: 1 on 05/26/2024 by Darien Alvarez MD at [facility] N/A: Spine Lumbar [employer] Victor M 5.5b084an Spinal Cd Horizon Solera Titanium Curve - [id number] Implanted:Qty: 1 on 05/26/2024 by Darien Alvarez MD at [facility] N/A: Spine Lumbar [employer] [id number] / / Graft Bone 60cc 1-4mm Chip Cancellous - [id number] Implanted:Qty: 1 on 05/26/2024 by Darien Alvarez MD at [facility] N/A: Spine Lumbar [employer] 03/12/2029 [id number] / [id number] / Fastener Extension 6.5 X 45mm Cannulated - [id number] Implanted:Qty: 4 on 05/26/2024 by Darien Alvarez MD at [facility] N/A: Spine Lumbar [employer] [id number] / / Set Screw - [id number] Implanted:Qty: 4 on 05/26/2024 by Darien Alvarez MD at [facility] N/A: Spine Lumbar [employer] [id number] / / Spine Victor M 6 To [id number] Reline O Titanium Tapered - [id number] Implanted:Qty: 1 on 05/26/2024 by Darien Alvarez MD at [facility] N/A: Spine Lumbar [employer] [id number] / / Spine Victor M 500mm 6.0 5.0 Reline [place] - [id number] Implanted:Qty: 1 on 05/26/2024 by Darien Alvarez MD at [facility] N/A: Spine Lumbar [employer] [id number] / / Screw Bone 5.5x6x6.5x50mm Spine Fixation Solara Polyaxial Cannulated - [id number] Implanted:Qty: 12 on 05/26/2024 by Darien Alvarez MD at [facility] N/A: Spine Lumbar [employer] [id number] / / Screw Spine 6.5x45mm Longitude Cannulated - [id number] Implanted:Qty: 4 on 05/26/2024 by Darien Alvarez MD at [facility] N/A: Spine Lumbar [employer] [id number] / / Screw Spine 7.5x50mm [employer] Cannulated - [id number] Implanted:Qty: 1 on 05/26/2024 by Darien Alvarez MD at [facility] N/A: Spine Lumbar [employer] [id number] / / Screw Bone 8.5x50mm Spine Cd Horizon 5.5 Multiaxial [place] Chrome Osteogrip Dual Lead Thread - [id number] Implanted:Qty: 2 on 05/26/2024 by Darien Alvarez MD at [facility] N/A: Spine Lumbar [employer] [id number] / / Insurance MEDICARE PART A & B [employer] [employer] PREFERRED HMO REPLACEMENT MEDICARE PART A & B [employer] PREF[employer] REPLACEMENT MEDICARE PART A & B [facility] MEDICARE PREFERRED HMO REPLACEMENT MEDICARE PART A & B [employer] PREFERRED HMO REPLACEMENT MEDICARE PART A & B [facility] MEDICARE PREFERRED HMO REPLACEMENT MEDICARE PART A & B [facility] MEDICARE PREFERRED HMO REPLACEMENT Advance Directives For more information, please contact: [phone] (9AM - 5PM [place], Saturday-Saturday) Documents on File Type Date Recorded Patient Information Security Director Expl anation Healthcare Proxy 06/02/2024 10:13 AM * Full Code (Latest Code Status on File) Date Activated Date Inactivated Comments 05/26/2024 4:25 PM Question Answer Comments Code Status Confirmed With: Patient Code Status Communicated To: Inpatient Attending Care Teams Circulation Analyst Relationship Specialty Start Date End Date Rebeca Allen MD [address] [place] [id number] PCP - General Internal Medicine 11/05/23 Additional Source Comments The information contained in this document represents components of the legal health record. It is not the complete legal health record.[facility]
--- OUTSIDE RECORDS SUMMARY | 2025-09-14 13:34 | XMS_ITS | Clinical Summary ---
Author Organization [facility] [address] [facility] l[address] Address [address] [place] [address] Phone Care Team Providers Care Cma Name Role Phone Rebeca Allen MD Primary Care Prov ider Allergies Active Allergy Reactions Criticality Noted Date Comments Alendronate Sodium Other 05/22/2023 Unknown reaction type. Patient states that she was on Fosamax through [facility] in the past but there is no evidence of that in the chart. Levofloxacin Weakness 09/10/2017 Meloxicam 12/26/2021 Meloxicam-Liniment Penicillins Swelling 12/03/2005 Medications hydrOXYzine HCL (ATARAX) 25 mg tablet Take 1 tablet (25 mg total) by mouth 3 (three) times a day if needed for anxiety. 02/10/20 24 Active lidocaine (XYLOCAINE) 5 % ointment Apply topically 2 (two) times a day. 35.44 g 2 07/22/20 25 Active amLODIPine (NORVASC) 5 mg tablet Take 1 tablet (5 mg total) by mouth 1 (one) time each day. 90 tablet 1 07/22/20 25 Active buPROPion SR (WELLBUTRIN SR) 150 mg 12 hr tablet Take 1 tablet (150 mg total) by mouth 1 (one) time each day in the morning. 90 tablet 1 07/22/20 25 Active furosemide (LASIX) 20 mg tablet Take 1 tablet (20 mg total) by mouth 1 (one) time each day. 90 tablet 1 07/22/20 25 Active pantoprazole (PROTONIX) 20 mg EC tablet Take 1 tablet (20 mg total) by mouth 1 (one) time each day. 90 tablet 1 07/22/20 25 Active HYDROcodone-acetam inophen (NORCO) 5-325 mg per tabletIndications: Osteoarthritis of lumbar spine, unspecified spinal osteoarthritis complication status Take 1 tablet by mouth 3 (three) times a day if needed for severe pain or moderate pain. Max Daily Amount: 3 tablets 84 tablet 08/25/20 25 Active HYDROcodone-acetam inophen (NORCO) 5-325 mg per tabletIndications: Osteoarthritis of lumbar spine, unspecified spinal osteoarthritis complication status Take 1 tablet by mouth 3 (three) times a day if needed for severe pain or moderate pain. Max Daily Amount: 3 tablets 84 tablet 07/22/20 25 025 Discontin ued(Reord er) Active Problems Problem Noted Date Diagnosed Date Mild episode of recurrent major depressive disor asmmie 04/20/2025 Gastroesophageal reflux disease without esophagi tis 04/20/2025 Chronic bilateral back pain 09/04/2024 Overview (09/04/2024): Posterior fusion from T9 to pelvic Fusion of spine of thoracic region 06/22/2024 Overview (08/03/2024): Posterior thoracic spine 3 or more levels osteotomy posterior lumbar spine Surgeon Dr. Ulisses Alvarez [facility] 2023 Osteopenia 05/07/2023 Severe obesity (BMI 35.0-39.9) with comorbidity 03/13/2023 COVID-19 virus infection 10/19/2021 Dysthymia 09/06/2020 Chondrocalcinosis of right knee 09/05/2020 Overview (08/03/2024): No history of pseudogout Primary osteoarthritis of both knees 02/06/2017 Overview (08/03/2024): R>L; chondrocalcinosis on the right Fibromyalgia 05/23/2015 Hypertension 06/21/2014 Peripheral vascular disease, unspecified 014 Osteoarthritis of lumbar spine 04/01/2006 Overview (08/03/2024): L3-4 disc surgery 1983 Encounters Date Type Department Care Team Description 08/23/2025 Telephone Adult [address] [phone] Rebeca Alan MD 08/05/[address] [phone] Rebeca Alan MD 07/30/[address] [phone] Asha Montesinos PA 07/22/2025 3:55 PM EDT Lab Draw Station [address] [phone] Palpitations 07/22/2025 2:30 PM EDT Office Visit [address] [phone] Asha Montesinos PA Primary hypertension (Primary Dx); Osteoarthritis of lumbar spine, unspecified spinal osteoarthritis complication status; Screening for malignant neoplasm of colon; Fibromyalgia; Peripheral vascular disease, unspecified (CMS/HCC V24); Chronic bilateral back pain, unspecified back location; Mild episode of recurrent major depressive disorder (CMS/HCC V24); Gastroesophageal reflux disease without esophagitis; Fusion of spine of thoracic region; Hypertension, unspecified type; Primary osteoarthritis of both knees; Severe obesity (BMI 35.0-39.9) with comorbidity (CMS/HCC V24, CMS/HCC V28); Palpitations; Abnormal EKG 07/22/2025 Results Follow-Up [address] [phone] Asha Montesinos PA from Last 3 Months Immunizations Immunization Administration Dates Next Due Influenza Quadravalent, MDCK [...] 0.5 Q uit: 09/23/2008 Smokeless Tobacco: Never Tobacco [...] care for your loved ones. For example, registered nurse maternal child or elderly care for an older adult? [...] Orientation Straight 04/27/2025 10 :36 AM EDT Obstetrics History Para Term AB IAB SAB Ectopic Multiple Livin g Live Births 1 Last Filed Vital Signs Vital Sign Reading Time Taken Comments Blood Pressure 124/76 07/22/2025 2:30 PM EDT Pulse 98 07/22/2025 2:30 PM EDT Temperature 36.5 C (97.7 F) 07/22/2025 2:30 PM EDT Respiratory Rate - - Oxygen Saturation - - Inhaled Oxygen Concentration - - Weight 91.9 kg (202 lb 9.6 oz) 07/22/2025 2:30 P M EDT Height 152.4 cm (5') 07/22/2025 2:30 PM EDT Body Mass Index 39.57 07/22/2025 2:30 PM EDT Plan of Treatment Upcoming Encounters Date Type Department Care Team (Late st Contact Info) Description 09/21/2025 3:00 PM EST Ancillary Procedure [facility] [place] [address] [phone] 10/08/2025 2:30 PM EST Ancillary Procedure [facility] [place] [address] [phone] 10/22/2025 11:45 AM EST Office Visit Adult Medicine - [place] [address] [place] [phone] Asha Montesinos PA [address] [place] [address] Health Maintenance Due Date Last Done Comments Colorectal Cancer Screening: Colonoscopy 1955 Naloxone Order 1956 Opioid Substance Agreement 1956 Pneumococcal Vaccine: 50+ Years (1 of 1 - PCV) 2006 RSV Immunization Adult Patients (1 - Risk 50-74 years 1-dose series) 2006 Zoster Vaccines (1 of 2) 2006 COVID-19 Vaccine (6 - season) 2025 07/10/2023, 08/13/2022, 08/21/2021, Additional history exists Drug Screen 01/15/2026 01/15/2025 Medicare Annual Wellness Visit 01/15/2026 01/15/2025 Pain Assessment 01/15/2026 01/15/2025 Social Influencers of Health Screening 01/15/2026 01/15/2025 Falls Risk Assessment 04/20/2026 04/20/2025, 025 Osteoporosis Screening (Bone Density Screening) 05/02/2026 05/02/2023 Hypertension/CHF/CAD Annual BMP Blood Test 07/22/2026 07/22/2025, 04/20/2025, 06/03/2024 Breast Cancer Screening 05/03/2027 05/03/2025, 03/20 Cholesterol Screening (Lipid Panel) 04/12/2028 04/12/2023, 03/13/2023 DTaP,Tdap,and Td Vaccines (5 - Td or Tdap) 02/01/2032 01/31/2022, 06/21/2014, 04/01/2006, Additional history exists Hepatitis C Screening Completed 06/21/2014 Depression Screening Completed 04/19/2025, 05/20/20 24 Influenza Vaccine Completed 06/09/2025, , 06/19/2023, Additional history exists HIB Vaccines Aged Out [...] Procedure Name Priority Date/Time Associated Diagnosis Comments CBC WITH AUTO DIFFERENTIAL Routine 07/22/2025 3:53 PM EDT Palpitations MAGNESIUM Routine 07/22/2025 3:53 PM EDT Palpitations COMPREHENSIVE METABOLIC PANEL Routine 07/22/2025 3:53 PM EDT Palpitations CBC AND DIFFERENTIAL Routine 07/22/2025 3:53 PM EDT Palpitations THYROID STIMULATING HORMONE WITH REFLEX TO FREE T4 AND FREE T3 Routine 07/22/2025 3:53 PM EDT Palpitations ECG 12-LEAD Routine 07/22/2025 3:41 PM EDT Palpitations MG MAMMO DIGITAL SCREENING W TERRY BILAT Routine 05/03/2025 3:34 PM EDT Screening mammogram for breast cancer DRUG ABUSE SCREEN EXPANDED WITH REFLEX CONFIRMATION, URINE Routine 01/15/2025 4:23 PM EDT Encounter for long-term (current) use of high-risk medication DEPRESSION SCREENING Routine 05/20/2024 DXA BONE DENSITY STUDY 1+ SITS AXIAL SKEL Routine 05/02/2023 3:28 PM EDT Encounter for screening for osteoporosis LIPID PANEL Routine 04/12/2023 HEPATITIS C SCREENING Routine 06/21/2014 from Last 3 Months or Most Recently Relevant to Health Maintenance Results * Thyroid stimulating hormone with reflex to free t4 and free t3 (07/22/2025 3:53 PM EDT) Pathologist [facility] TSH 0.92 0.40 - 4.00 mcIU/mL LAB CHEMISTRY METHOD 07/22/2025 7:03 PM EDT [facility] Blood Venous blood specimen / Unknown Venipuncture / Unknown 07/22/2025 3:53 PM EDT 07/22/2025 3:53 PM EDT us Asha NOVA LAB BLOOD ORDERABLES Final Result [facility] [address] [place] [address], * (ABNORMAL) CBC auto differential (07/22/2025 3:53 PM EDT) [facility] WBC 8.4 4.8 - 10.8 K/mcL LAB HEMETOLOGY METHOD 07/22/2025 5:58 PM EDT [facility] RBC 4.90(H) 3.80 - 4.80 M/mcL LAB HEMETOLOGY METHOD 07/22/2025 5:58 PM EDT [facility] Hemoglobin 14.1 11.5 - 16.0 g/dL LAB HEMETOLOGY METHOD 07/22/2025 5:58 PM EDT [facility] Hematocrit 45.3 35.0 - 47.0 % LAB HEMETOLOGY METHOD 07/22/2025 5:58 PM EDT [facility] MCV 91.7 79.0 - 98.0 FL LAB HEMETOLOGY METHOD 07/22/2025 5:58 PM EDT [facility] MCH 28.5 27.0 - 32.0 pcg LAB HEMETOLOGY METHOD 07/22/2025 5:58 PM EDT [facility] MCHC 31.1(L) 32.0 - 37.0 g/dL LAB HEMETOLOGY METHOD 07/22/2025 5:58 PM EDT [facility] RDW 13.1 11.0 - 15.0 % LAB HEMETOLOGY METHOD 07/22/2025 5:58 PM EDT [facility] Platelets 379 130 - 400 K/mcL LAB HEMETOLOGY METHOD 07/22/2025 5:58 PM EDT [facility] MPV 9.9 7.0 - 11.0 FL LAB HEMETOLOGY METHOD 07/22/2025 5:58 PM EDT [facility] NRBC 0.0 <1.0 % LAB HEMETOLOGY METHOD 07/22/2025 5:58 PM EDT [facility] NRBC Absolute 0.00 <0.10 K/mcL LAB HEMETOLOGY METHOD 07/22/2025 5:58 PM EDT [facility] Neutrophils Relative 53.6 % LAB HEMETOLOGY METHOD 07/22/2025 5:58 PM EDT [facility] Lymphocytes Relative 31.0 % LAB HEMETOLOGY METHOD 07/22/2025 5:58 PM EDT [facility] Monocytes Relative 11.1 % LAB [facility]/22[facility] Eosinophils Relative 3.1 % LAB HEMETOLOGY METHOD 07/22/2025 5:58 PM EDT [facility] Basophils Relative 1.0 % LAB HEMETOLOGY METHOD 07/22/2025 5:58 PM EDT [facility] Immature Granulocytes Relative 0.2 % LAB HEMETOLOGY METHOD 07/22/2025 5:58 PM EDT [facility] Neutrophils Absolute 4.47 1.50 - 7.00 K/mcL LAB HEMETOLOGY METHOD 07/22/2025 5:58 PM EDT [facility] Lymphocytes Absolute 2.59 1.00 - 5.00 K/mcL LAB HEMETOLOGY METHOD 07/22/2025 5:58 PM EDT [facility] Monocytes Absolute 0.93 0.20 - 1.00 K/[facility] LAB HEMETOLOGY METHOD 07/22/2025 5:58 PM EDT [facility] Eosinophils Absolute 0.26 0.00 - 0.50 K/[facility] LAB HEMETOLOGY METHOD 07/22/2025 5:58 PM EDT [facility] Basophils Absolute 0.08 0.00 - 0.20 K/[facility] LAB HEMETOLOGY METHOD 07/22/2025 5:58 PM EDT [facility] Immature Granulocytes Absolute 0.02 0.00 - 0.03 K/[facility] LAB HEMETOLOGY METHOD 07/22/2025 5:58 PM EDT [facility] Blood Venous blood specimen / Unknown Venipuncture / Unknown 07/22/2025 3:53 PM EDT 07/22/2025 3:53 PM EDT Asha NOVA LAB BLOOD ORDERABLES Final Result [facility] [address] [place] [address], [place] [phone] * Magnesium (07/22/2025 3:53 PM EDT) [facility] Signature Magnesium 2.0 1.9 - 2.6 mg/dL LAB CHEMISTRY METHOD 07/22/2025 6:07 PM EDT [facility] Blood Venous blood specimen / Unknown Venipuncture / Unknown 07/22/2025 3:53 PM EDT 07/22/2025 3:53 PM EDT Asha Montesinos PA LAB BLOOD ORDERABLES Final Result [facility] [address] [place] [address], [place] [phone] * (ABNORMAL) Comprehensive metabolic panel (07/22/2025 3:53 PM EDT) Sodium 138 133 - 145 mmol/L LAB CHEMISTRY METHOD 07/22/2025 6:07 PM [facility] Potassium 3.9 3.5 - 5.5 mmol/L LAB CHEMISTRY METHOD 07/22/2025 6:07 PM [facility] Chloride 102 96 - 110 mmol/L LAB CHEMISTRY METHOD 07/22/2025 6:07 PM [facility] CO2 27 21 - 32 mmol/L LAB CHEMISTRY METHOD 07/22/2025 6:07 PM [facility] Anion Gap 9 3 - 11 LAB CHEMISTRY METHOD 07/22/2025 6:07 PM [facility] Glucose 78 70 - 100 mg/dL LAB CHEMISTRY METHOD 07/22/2025 6:07 PM [facility] BUN 19 5 - 25 mg/dL LAB CHEMISTRY METHOD 07/22/2025 6:07 PM [facility] Creatinine 0.72 0.50 - 1.10 mg/dL LAB CHEMISTRY METHOD 07/22/2025 6:07 PM [facility] eGFR 91 >=60 mL/min/1. 73m2 LAB CHEMISTRY METHOD 07/22/2025 6:07 PM [facility] Comment:Calculation based on the Chronic Kidney Disease Epidemiology Collaboration (CKD-EPI) equation refit without adjustment for race. BUN/Creatinine Ratio 26.4 LAB CHEMISTRY METHOD 07/22/2025 6:07 PM [facility] Calcium 9.7 8.5 - 10.5 mg/dL LAB CHEMISTRY METHOD 07/22/2025 6:07 PM [facility] AST (SGOT) 28 10 - 42 unit/L LAB CHEMISTRY METHOD 07/22/2025 6:07 PM [facility] ALT (SGPT) 43 10 - 60 unit/L LAB CHEMISTRY METHOD 07/22/2025 6:07 PM EDT [facility] Alkaline Phosphatase 155(H) 42 - 121 unit/L LAB CHEMISTRY METHOD 07/22/2025 6:07 PM EDT [facility] Total Protein 8.3(H) 6.0 - 8.0 g/dL LAB CHEMISTRY METHOD 07/22/2025 6:07 PM EDT [facility] Albumin 4.4 3.2 - 5.0 g/dL LAB CHEMISTRY METHOD 07/22/2025 6:07 PM EDT [facility] Total Bilirubin 0.3 0.0 - 1.4 mg/dL LAB CHEMISTRY METHOD 07/22/2025 6:07 PM EDT [facility] Blood Venous blood specimen / Unknown Venipuncture / Unknown 07/22/2025 3:53 PM EDT 07/22/2025 3:53 PM EDT us Asha NOVA LAB BLOOD ORDERABLES Final Result [facility] [address] [place] [address], [place] [phone] * ECG 12 lead (07/22/2025 3:41 PM EDT) Narrative Asha Montesinos PA - 07/22/2025 3:41 PM EDT SINUS OR ectopic atrical tachycardia Paired ventricular premature complexes Short RP interval Abnormal r-wave progression early transition Minimal ST depression, inferior leads us Asha NOVA ECG ORDERABLES Edited Res ult - Final * MG Mammo Digital Screening w Terry bilat (05/03/2025 3:34 PM EDT) Anatomical Region Laterality Modality Breast Bilateral Mammography 05/04/2025 7:56 AM EDT Impressions 05/04/2025 8:00 AM EDT No mammographic evidence of malignancy. A negative mammogram in the presence of a clinically suspicious palpable abnormality does not preclude the possibility of malignancy or alter the indications for biopsy. PQRI CPT II 3342F Code 58653, 42598 PQRI 225 CPT II 7025F TISSUE DENSITY: There are scattered areas of fibroglandular density. (BI-RADS category B) IMPRESSION: Benign. BI-RADS CATEGORY: 2 - BENIGN RECOMMENDATION: Screening bilateral mammogram is recommended in 1 year. Mammo Location: [facility], [address] [place] [id number] -------- FINAL REPORT -------- Dictated By: Gregory Yang Dictated Date: 05/04/2025 07:56 ET Assigned Physician: Gregory Yang Reviewed and Electronically Signed By: Gregory Yang Signed Date: 05/04/2025 08:00 ET Workstation ID: [id number] Transcribed By: Self Edit Transcribed Date: 05/04/2025 07:56 ET Narrative 05/04/2025 8:00 AM EDT CLINICAL: The patient is a 69 years Female presenting for routine screening mammography. COMPARISON: 03/19/2023 TECHNIQUE: Full-field digital mammography of the breasts bilaterally consisting of tomosynthesis in MLO and CC projection is performed in the EidoSearch 2000-D unit. Computer aided detection utilizing the KidzillionsD system was utilized. FINDINGS: The breasts are again seen to be composed of a combination of fatty and fibroglandular elements. Scattered benign punctate and rim type calcifications bilaterally are stable. There is no suspicious cluster of microcalcifications, mass, or area of architectural distortion. There is no skin thickening or nipple retraction. Procedure Note Gregory Yang MD - 05/04/2025 CLINICAL: The patient is a 69 years Female presenting for routinescreening mammography. COMPARISON: 03/19/2023 TECHNIQUE: Full-field digital mammography of the breasts bilaterallyconsisting of tomosynthesis in MLO and CC projection is performed in theEidoSearch 2000-D unit. Computer aided detection utilizing the iCADsystem was utilized. FINDINGS: The breasts are again seen to be composed of a combination offatty and fibroglandular elements. Scattered benign punctate and rim typecalcifications bilaterally are stable. There is no suspicious cluster ofmicrocalcifications, mass, or area of architectural distortion. There isno skin thickening or nipple retraction. IMPRESSION: No mammographic evidence of malignancy. A negative mammogram in the presence of a clinically suspicious palpableabnormality does not preclude the possibility of malignancy or alter theindications for biopsy. PQRI CPT II 3342F Code 29807, 54775 PQRI 225 CPT II 7025F TISSUE DENSITY: There are scattered areas of fibroglandular density.(BI-RADS category B) IMPRESSION: Benign. BI-RADS CATEGORY: 2 - BENIGN RECOMMENDATION: Screening bilateral mammogram is recommended in 1 year. Mammo Location: [facility], [address] [place] [id number] -------- FINAL REPORT -------- Dictated By: Gregory Yang Dictated Date: 05/04/2025 07:56 ET Assigned Physician: Gregory Yang Reviewed and Electronically Signed By: Gregory Yang Signed Date: 05/04/2025 08:00 ET Workstation ID: [id number] Transcribed By: Self Edit Transcribed Date: 05/04/2025 07:56 ET us Asha NOVA IMG BI PROCEDURES Final Re sult * (ABNORMAL) Drug abuse screen expanded with reflex confirmation, urine (01/15/2025 4:23 PM EDT) Amphetamine Screen, Ur Negative Negative LAB CHEMISTRY METHOD 5 6:37 PM EDT [facility] Comment:Certain OTC medicati ons containing ephedrine, phenylephrine, pseudoephedrine and phenylpropanolamine can cause false positive results. Barbiturate Screen, Ur Negative Negative LAB CHEMISTRY METHOD 5 6:37 PM EDT [facility] Benzodiazepine Screen, Ur Negative Negative LAB CHEMISTRY METHOD 5 6:37 PM EDT [facility] Cocaine Screen, Ur Negative Negative LAB CHEMISTRY METHOD 5 6:37 PM EDT [facility] Opiate Screen, Ur Positive(A ) Negative LAB CHEMISTRY METHOD 5 6:37 PM EDT [facility] Cannabinoid (THC) Screen, Ur Negative Negative LAB CHEMISTRY METHOD 5 6:37 PM EDT [facility] Comment:Specimens from patie nts taking pantoprazole sodium (Protonix) have been shown to produce false positive results. Fentanyl, Ur Negative Negative LAB CHEMISTRY METHOD 5 6:37 PM EDT [facility] Oxycodone Screen, Ur Negative Negative LAB CHEMISTRY METHOD 5 6:37 PM EDT [facility] Urine Urine specimen obtained by clean catch procedure / Unknown Non-blood Collection / Unknown 01/15/2025 4:23 PM EDT 01/15/2025 4:23 PM EDT Narrative [facility] - 01/15/2025 6:37 PM EDT Assay cutoffs: Amphetamines 1000 ng/mL Barbiturates 200 ng/mL Benzodiazepines 200 ng/mL Cocaine 300 ng/mL Fentanyl 1 ng/mL Opiates 300 ng/mL Oxycodone 100 ng/mL THC 50 ng/mL Semi-quantitative assay for screening purposes only. Unconfirmed screening result should not be used for non-medical purposes. *POSITIVE RESULTS ARE AUTOMATICALLY SENT FOR ALTERNATE METHOD CONFIRMATION* Rebeca Allen MD LAB URINE ORDERABL ES Final Result [facility] [address] [place] [address], * Depression Screening (05/20/2024) Pathologist [facility] Depression Screening Abstracted Historical Provider HEALTH MAINTENANCE Final Result * DXA BONE DENSITY STUDY 1+ SITS AXIAL SKEL (05/02/2023 3:28 PM EDT) Anatomical Region Laterality Modality Bone Densitometr y 03/13/2023 10:2 5 AM EDT Narrative 05/06/2023 11:47 AM EDT STUDY: DUAL ENERGY X-RAY ABSORPTIOMETRY / DXA REASON FOR EXAM: Female, 67 years old. other(see comments) TECHNIQUE: Bone Mineral Density (BMD) measurements of the lumbar spine and left hip were obtained. COMPARISON: None FINDINGS: [...] Densitometry http://www.iscd.org 3. National [employer]oporosis Foundation http://www.nof.org Procedure Note Antonia Marques [...] 3. [employer] http://www.nof.org Anibal NOVA IMG DXA PROCEDURES Final Resul t * Lipid panel (04/12/2023) [facility] Cholesterol 160 <=200 mg/dL Blood Venous blood specimen / Unknown Result [facility] Historical Provider LAB BLOOD ORDERABLES Thu l Result * Hepatitis C Screening (06/21/2014) [facility] Hepatitis C Screening Abstracted Historical Provider HEALTH MAINTENANCE Final Result from Last 3 Months or Most Recently Relevant to Health Maintenance Insurance MEDICARE [employer] Care Teams Cma Relationship Specialty Start Date End Date Rebeca Allen MD [address] [place] [phone] PCP - General Internal Medicine 09/04/24
== END 2025-09-14 13:36 | disposition home or self-care (01) ==
LOC: HO.RHES 12:30
PROVIDERS: PCP Internal Medicine; Visit Provider Student in an Organized Health Care Education/Training Program
DX: M15.0 Primary generalized (osteo)arthritis (principal); M25.50 Pain in unspecified joint; I73.00 Raynaud's syndrome without gangrene
CPT/HCPCS: 99204

== ENCOUNTER 2025-09-14 12:30 | Outpatient (REF) | payer MEDICARE, OTHER, SELFPAY ==
[2025-09-14 18:24] LABS: Appearance Urine Clear; Glucose Urine UA Negative (Negative); PH 5.5 (5.0-9.0); Specific Gravity - Urine 1.015 (1.005-1.025); UMIC TRIGGER UACC YES
[2025-09-14 18:29] LABS: MANUAL DIFF FLAG NO
[2025-09-14 18:39] LABS: Hematocrit 41.5 % (37.0-47.0); Hemoglobin 13.3 g/dl (12.0-16.0); Imm Gran Abs Auto 0.01 X10*3/uL (0.00-0.03); Imm Gran Pct Auto 0.1 % (0.0-0.4); Lymphocytes Absolute Auto 2.3 X10*3/uL (1.2-4.9); Mean Corpuscular HGB Conc 32.0 g/dl (31.0-35.0); Mean Corpuscular Hemoglobin 29.2 pg (27.0-33.0); Mean Corpuscular Volume 91.2 fL (80.0-98.0); NRBC Abs Auto 0.000 X10*3/uL (0.0-0.012); NRBC Pct Auto 0.0 /100WBC (0.0-0.2); Platelet Count 407 X10*3/uL (160-400); Red Blood Count 4.55 X10*6/uL (4.20-5.50); White Blood Count 8.9 X10*3/uL (4.8-10.8)
[2025-09-14 18:57] LABS: Alanine Aminotransferase 42 U/L (0-31); Aspartate Amino Transferase 45 U/L (5-31); Estimated Glomerular Filt Rate > 60
[2025-09-14 18:59] LABS: Total Protein Urine Random < 7 mg/dL (<12)
[2025-09-14 19:13] LABS: Thyroid Stimulating Hormone 0.56 uIU/mL (0.32-4.0)
[2025-09-15 20:03] LABS: Thyroglobulin Antibodies <1 IU/mL (< or = 1)
[2025-09-15 23:13] LABS: Antibody to SS-A Antigen <1.0 NEG AI (<1.0 NEG); Antibody to SS-B Antigen <1.0 NEG AI (<1.0 NEG); SM/Ribonucleoprotein Ab <1.0 NEG AI (<1.0 NEG); Smith Protein <1.0 NEG AI (<1.0 NEG)
== END 2025-09-14 12:31 ==
LOC: HO.HKASLDS 12:30
PROVIDERS: PCP Internal Medicine; Visit Provider Student in an Organized Health Care Education/Training Program
DX: M15.0 Primary generalized (osteo)arthritis (principal); R76.0 Raised antibody titer; I73.00 Raynaud's syndrome without gangrene; Z87.891 Personal history of nicotine dependence; Z13.29 Encounter for screening for other suspected endocrine disorder; Z01.84 Encounter for antibody response examination
CPT/HCPCS: 36415; 81001; 82565; 82570; 84156; 84182; 84443; 84450; 84460; 85025; 85652; 86038; 86140; 86160; 86200; 86225; 86235; 86255; 86376; 86431; 86800